=== PATIENT | female | born 1935 | race American Indian/Alaskan Native ===

== ENCOUNTER 2022-03-12 06:08 | Day surgery (SDC) | payer MEDICARE ==
[~2022-03-12 06:08] MED LIST: MIDAZOLAM 2 MG/2 ML INJ IV NR; SODIUM CHLORIDE 0.9% 1000 ML 1,000 ML IV SCH; ceFAZolin/Water 2 GM/20 ML 2 GM/20 ML SYRINGE IV NR; fentaNYL 100 MCG/2 ML INJ IV PRN
[2022-03-12] MEDS ORDERED: BACTERIOSTATIC SODIUM CHLORIDE 0.9% 30 ML VIAL INFILTRATI ONE (06:34)
--- NOTE | 2022-03-12 07:31 | Anesthesia Consultation ---
Anesthesia Consult and Med Hx Date of service: 03/12/22 - Airway Anesthetic Teeth Evaluation: Good (some missing teeth) ROM Head & Neck: Adequate Mental/Hyoid Distance: Adequate Mallampati Class: Class II Intubation Access Assessment: Probably Good - Pre-Operative Health Status ASA Pre-Surgery Classification: ASA3 Proposed Anesthetic Plan: MAC - Pulmonary Hx Smoking: No Hx Asthma: No COPD: Yes (DOESN'T USE INHALERS. DAUGHTER THINKS IT WAS BECAUSE OF ESRD. 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
--- NOTE | 2022-03-12 07:32 | Anesthesia Day of Surgery ---
Anesthesia Day of Surgery - Day of Surgery Patient Examined: Yes Patient H&P Reviewed: Yes Patient is NPO: Yes
[2022-03-12 07:36] LABS: Calcium 9.5 mg/dL (8.4-10.2)
[2022-03-12] MEDS ORDERED: ROPIVACAINE/PF (0.5%) 5 MG/1 ML 30 ML VIAL ONE (07:40)
[2022-03-12] MEDS ORDERED: LIDOCAINE (1%) 10 MG/1 ML VIAL 20 ML MDV ONE (07:41)
[2022-03-12] MEDS ORDERED: GLYCOPYRROLATE 0.4 MG/2 ML INJ ONE (07:57)
[2022-03-12] MEDS ORDERED: propofoL 200 MG/20 ML VIAL IV ONE (08:05)
[2022-03-12] MEDS ORDERED: LIDOCAINE MPF (2%) 20 MG/1 ML VIAL 5 ML ONE (08:05)
[2022-03-12] MEDS ORDERED: LIDOCAINE (2%) 20 MG/1 ML VIAL 20 ML MDV INFILTRATI ONE (08:11)
[2022-03-12] MEDS ORDERED: SODIUM CHLORIDE P/F VIAL 10 ML 10 ML ONE (08:12)
[2022-03-12] MEDS ORDERED: SODIUM CHLORIDE 0.9% 250ML 250 ML ONE (08:12)
[2022-03-12] MEDS ORDERED: HEPARIN 10,000 UNITS/10 ML VIAL ONE (08:12)
[2022-03-12] MEDS ORDERED: BUPIVACAINE/PF (0.5%) 5 MG/1 ML 10 ML VIAL INFILTRATI ONE (08:12)
[2022-03-12] MEDS ORDERED: SODIUM CHLORIDE 0.9% 500 ML 500 ML ONE (08:13)
[2022-03-12] MEDS ORDERED: HYDROmorphone 0.5 MG/0.5 ML INJ ONE (08:38)
[2022-03-12] MEDS ORDERED: ePHEDrine SULFATE 50 MG/1 ML INJ ONE (08:57)
[2022-03-12] MEDS ORDERED: ONDANSETRON 4 MG/2 ML INJ ONE (09:59)
--- NOTE | 2022-03-12 10:01 | Short Stay Summary ---
Short Stay Documentation Date of service: 03/12/22 Narrative H&P: See H&P - History H&P: obtained from office - Allergies and Medications Current Medications: Allergies lisinopril Allergy (Verified 03/07/22 16:22) Unknown Home Medications Medication Instructions Recorded Confirmed Last Taken Type Apixaban [Eliquis] 2.5 mg PO BID 03/07/22 03/12/22 03/10/22 History Aspirin EC [Halfprin EC] 81 mg PO QDAY 03/07/22 03/07/22 03/11/22 History Brimonidine Tartrate [Brimonidine 1 drop OU Q8HR 03/07/22 03/07/22 03/12/22 04:55 History Tartrate 0.2%] Carboxymethylcellulose Sodium 1 drop OP BID 03/07/22 03/07/22 03/12/22 04:55 History [Refresh Tears] Cholecalciferol Vit D3 [Vitamin D3 1,000 unit PO QDAY 03/07/22 03/07/22 03/11/22 History 1,000 UNIT TAB] Cyanocobalamin/Folic Acid [Vitamin 1 each PO DAILY 03/07/22 03/07/22 03/11/22 History F12-Tdiug Acid Tablet] Docusate Sodium [Colace] 100 mg PO BID 03/07/22 03/07/22 03/11/22 History Lactulose 10 gm PO PRN PRN 03/07/22 03/07/22 03/11/22 History Mirtazapine [Remeron] 15 mg PO QHS 03/07/22 03/07/22 03/11/22 History NIFEdipine [Nifedipine ER] 30 mg PO QDAY 03/07/22 03/12/22 03/12/22 04:30 History Polyethylene Glycol 3350 [Miralax] 17 gm PO PRN PRN 03/07/22 03/07/22 03/11/22 History Pravastatin [Pravachol] 40 mg PO QHS 03/07/22 03/07/22 03/11/22 History Sevelamer Carbonate [Renvela] 800 mg PO TIDWM 03/07/22 03/07/22 03/11/22 History Travoprost [Travatan Z] 1 drop OP QHS 03/07/22 03/07/22 03/11/22 History Ubidecarenone [Coq10] 100 mg PO QDAY 03/07/22 03/07/22 03/11/22 History Active Medications Fentanyl (Fentanyl 100 Mcg/2 Ml Inj) 100 mcg IV ONCE PRN PRN Reason: sedation for nerve block Stop: 03/12/22 23:59 Cefazolin Sodium (Ancef/Sterile Water 2 Gm/20 Ml) 2 gm in 20 mls @ 80 mls/hr IV PREOP NR; Protocol Stop: 03/12/22 23:00 Sodium Chloride (Nacl 0.9% 1000 Ml) 1,000 mls @ 42 mls/hr IV DIRECT RUBEN Stop: 03/12/22 23:59 Last Admin: 03/12/22 07:15 Dose: 42 mls/hr Midazolam HCl (Midazolam 2 Mg/2 Ml Inj) 2 mg IV PREOP NR Stop: 03/12/22 23:59 Last Admin: 03/12/22 08:01 Dose: 1 mg - Brief post op/procedure progress note Date of procedure: 03/12/22 Pre-op diagnosis: End-Stage Renal Disease Post-op diagnosis: same Procedure: Creation of Left Axillary Artery to Left Axillary Vein Arteriovenous Graft with 6 mm Bovine Artegraft Anesthesia: MAC, regional Surgeon: RASHARD COHN Estimated blood loss: minimal Pathology: none Condition: stable - Disposition Condition at discharge: Good Short Stay Discharge Plan Activity: other (No heavy lifting with left arm for 2 weeks.) Wound: open to air, keep clean and dry, other (Okay to wash the left arm incisions with soap and water but do not soak in water for 2 weeks.) Follow up with: PRIMARY CAREMD [Primary Care Provider] - 7 Days RASHARD COHN MD [Staff Physician] - 14 Days Prescriptions: HYDROcodone/APAP 5-325 [Mosby 5/325] 1 each PO Q6HR PRN #30 tablet PRN Reason: Pain
--- NOTE | 2022-03-12 10:08 | Operative Report ---
Operative Report Operative Report: Date of Procedure: 03/12/2022 Pre-operative Diagnosis: End-Stage Renal Disease Post-operative Diagnosis: Same Procedure(s): 1. The Left Axillary Artery to Axillary Vein Arteriovenous Loop Graft with 6 mm Bovine Artegraft Surgeon: Chris Parsons M.D. Repair Weaver: Marixa Anesthesia: Regional/MAC EBL: Minimal Counts: Correct Complications: None Condition: Stable Findings: Successful creation of left arm AV graft with adequate thrill at the completion of the case. Specimen: None Indication: The patient is an 86-year-old female with a history of end-stage renal disease who is currently on hemodialysis through a right internal jugular permacath. She is in need of long-term dialysis access and requires creation of a left arm arteriovenous graft. She was given the risk, benefits, and alternative procedures and consented to the procedure. Description of Procedure: Prior to being transported to the operative room the patient had a regional block performed in the preop area. The patient was then transported to the operating room and laid in supine position. A timeout was performed and then she was adequately sedated. Her left arm was then prepped and draped in normal sterile fashion. Initially I made a longitudinal incision on the medial aspect of the left arm, just proximal to the antecubital crease. I dissected her brachial artery circumferentially and the artery was small so I decided to create an axillary artery to axillary vein loop graft. A longitudinal incision was created on the medial aspect of the arm and carried down to the axillary vein using sharp dissection. This was dissected circumferentially and controlled with a vessel loop. I then turned my attention to the axillary artery. The axillary artery was dissected circumferentially and controlled with 2 vessel loops. I used a Raeann-Wick tunneler to tunnel the graft in a loop fashion. I used the brachial artery incision as the counterincision to tunnel the graft. I systemically heparinized the patient with 3000 units of heparin IV and then used angled DeBakey clamps to control flow in the axillary artery. I created an arteriotomy using an 11 blade and Sharpe scissors. I then created an end-to-side anastomosis using a 6-0 Prolene in running fashion. After completing the anastomosis I released the clamps allowing flow into the graft, which had adequate flow. I reclamped the graft just distal to the arterial anastomosis. I then cut the venous portion of the graft to length and beveled the end. I controlled the axillary vein with a Satinsky clamp and created a venotomy using an 11 blade and Sharpe scissors. I created an end-to-side anastomosis using a 6-0 Prolene in running fashion. Prior to completing the anastomosis I flashed the vein as well as the arterial inflow of the graft and then reclamped both vessels. I flushed the venotomy with heparinized saline, to clear any thrombus. I then completed the anastomosis and removed all clamps allowing flow into the graft. There was an adequate thrill. Hemostasis was achieved with a combination of Quick Clot and direct pressure. Once hemostasis was achieved both incisions were anesthetized with 0.5% Marcaine and closed in 2 layers using a 3-0 Vicryl, in a running fashion, in the deep dermal layer, and a 4-0 Monocryl, in running fashion, in the subcuticular layer. The wounds were then dressed with Dermabond. The patient tolerated the procedure well. All sponge, needle, and instrument counts were correct. The patient was taken to recovery in stable condition.
[2022-03-12] MEDS ORDERED: HEPARIN 10,000 UNITS/10 ML VIAL IV ONE (10:22)
[2022-03-12] MEDS ORDERED: SODIUM CHLORIDE 0.9% IRR 1,500 ML BOTTLE IR ONE (10:23)
[2022-03-12] MEDS ORDERED: rifAMPin 600 MG VIAL IV ONE (10:24)
[2022-03-12] MEDS ORDERED: SODIUM CHLORIDE 0.9% 500 ML IVPB IV ONE (10:24)
[2022-03-12] MEDS ORDERED: SODIUM CHLORIDE 0.9% P/F 10 ML VIAL IV ONE (10:25)
--- NOTE | 2022-03-12 11:30 | Post Anesthesia Evaluation ---
- Post Anesthesia Evaluation Patient Participated: Yes Airway Patent: Yes Stable Respiratory Function: Yes Nausea/Vomiting: No Temp > 96.8F: Yes Pain Manageable: Yes Adequeate Hydration: Yes Anesthesia Complications: No
[2022-03-12 12:07] VITALS: BP 97/54
== END 2022-03-12 11:20 | disposition home or self-care (01) ==
LOC: OR 06:08
PROVIDERS: ATTEND Surgery Vascular Surgery
DX: I13.2 Hypertensive heart and chronic kidney disease with heart failure and with stage 5 chronic kidney disease, or end stage renal disease (principal); N18.6 End stage renal disease; I50.9 Heart failure, unspecified; H40.9 Unspecified glaucoma; E78.00 Pure hypercholesterolemia, unspecified; I48.91 Unspecified atrial fibrillation; J44.9 Chronic obstructive pulmonary disease, unspecified; M19.90 Unspecified osteoarthritis, unspecified site; D64.9 Anemia, unspecified; Z91.81 History of falling; Z88.8 Allergy status to other drugs, medicaments and biological substances; Z79.899 Other long term (current) drug therapy; Z79.82 Long term (current) use of aspirin; Z90.710 Acquired absence of both cervix and uterus; Z96.653 Presence of artificial knee joint, bilateral; Z98.890 Other specified postprocedural states; Z86.73 Personal history of transient ischemic attack (TIA), and cerebral infarction without residual deficits
CPT/HCPCS: 36415; 36830; 64415; 80048; C1768; J0690; J1170; J1644; J1815; J2250; J2405; J2704; J2795; J3490; J7030; J7040; J7050; 64450; J3010